=== PATIENT | female | born 1980 | race Caucasian/White ===

== ENCOUNTER 2019-03-15 08:08 | Outpatient (CLI) | payer OTHER ==
--- NOTE | 2019-03-15 10:10 | MRI ---
MRI CERVICAL SPINE WITHOUT CONTRAST: Date: 03/15/19 HISTORY: 39-year-old female with neck pain, cervical radiculopathy, right arm, and shoulder tingling. COMPARISON: 04/11/16. FINDINGS: Vertebral body heights and marrow signal are maintained. Intervertebral disc heights and signal are a lso maintained. No focal disc herniation, central canal stenosis, or neural foraminal stenosis seen. The cervical spinal cord demonstrates normal course, caliber, and signal. No evidence of cord flower rose, cord edema, syringomyelia, or myelomalacia is seen. No tonsillar herniation is identified. IMPRESSION: Normal exam. POS: [facility]
== END 2019-03-15 08:09 | disposition home or self-care (01) ==
LOC: BICMRI 08:08
DX: M54.12 Radiculopathy, cervical region (principal)
CPT/HCPCS: 72141

== ENCOUNTER 2019-10-06 08:38 | Outpatient (CLI) | payer OTHER ==
--- NOTE | 2019-10-06 13:32 | MRI ---
BRACHIAL PLEXUS MRI: Date: 10/06/19 HISTORY: Right-sided arm and shoulder pain. Right arm fatigue. Numbness in the fingers of the right hand. Prev ious thoracic outlet surgery. Previous right bicep and labrum repair. COMPARISON: None. TECHNIQUE: A brachial plexus MRI is performed with and without intravenous Gadolinium administration. Multiseque ntial, multiplanar imaging is performed. FINDINGS: Visualized brain parenchyma and soft tissue neck structures are grossly unremarkable. Visualized spinal cord has appropriate signal intensity. No abnormal enhancement. Visualized cervical and thoracic vertebra have appropriate marrow signal intensity. Postcontrast images do not demonstrate any pathologic enhancement of the soft tissues of the neck, ve rtebral bodies, or spinal cord. No obvious masses in the aerodigestive tract. There is appropriate signal intensity of the right brachial plexus. There is no evidence of a mass or expansion. There is no evidence of abnormal enhancement. There is no evidence of an axillary mass or right periclavicular mass. There is evidence of previous surgical repair of the right biceps tendon. Overall, there is appropria te marrow signal intensity of the visualized right humerus. IMPRESSION: Unremarkable right brachial plexus MRI. POS: [facility]
[2019-10-06] MEDS ORDERED: Magnevist 469MG/ML 20 ML VIAL ONE (15:33)
== END 2019-10-06 08:39 | disposition home or self-care (01) ==
LOC: BICMRI 08:38
DX: G54.0 Brachial plexus disorders (principal); M25.511 Pain in right shoulder
CPT/HCPCS: 71552; A9579

== ENCOUNTER 2020-10-03 13:03 | Outpatient (CLI) | payer OTHER ==
--- NOTE | 2020-10-03 14:53 | MMO ---
Bilateral MAMMO Bilat Screen [facility]. CLINICAL HISTORY: Patient is 40 years old and is seen for screening. The patient has the following family history of breast cancer: grandmother, at age 85. The patient has no personal history of cancer. VIEWS: The views performed were: bilateral craniocaudal with tomosynthesis and bilateral mediolateral oblique with tomosynthesis. FILMS COMPARED: The present examination has been compared to prior imaging studies performed at [facility] on 08/01/2016 and 08/05/2016. This study has been interpreted with the assistance of computer-aided detection. MAMMOGRAM FINDINGS: The breasts are heterogeneously dense, which could obscure a lesion on mammography. There are no suspicious masses, suspicious calcifications, or new areas of architectural distortion. IMPRESSION: THERE IS NO MAMMOGRAPHIC EVIDENCE OF MALIGNANCY. A ROUTINE FOLLOW-UP MAMMOGRAM IN 1 YEAR IS RECOMMENDED. THE RESULTS OF THIS EXAM WERE SENT TO THE PATIENT. ACR BI-RADS Category 1 - Negative MAMMOGRAPHY NOTE: 1. A negative mammogram report should not delay a biopsy if a dominant of clinically suspicious mass is present. 2. Approximately 10% to 15% of breast cancers are not detected by mammography. 3. Adenosis and dense breasts may obscure an underlying neoplasm. Reported by: MADHAVI GOTTI MD Electonically Signed: [id number]
== END 2020-10-03 13:04 | disposition home or self-care (01) ==
LOC: BICMAMMO 13:03
PROVIDERS: ATTEND Obstetrics & Gynecology
DX: Z12.31 Encounter for screening mammogram for malignant neoplasm of breast (principal); Z80.3 Family history of malignant neoplasm of breast
CPT/HCPCS: 77063; 77067

== ENCOUNTER 2023-10-26 10:39 | Outpatient (CLI) | payer OTHER | END 2023-10-26 10:40 | disposition home or self-care (01) | LOC: BICMAMMO 10:39 | PROVIDERS: ATTEND Family Medicine | DX: M81.0 Age-related osteoporosis without current pathological fracture (principal); M85.89 Other specified disorders of bone density and structure, multiple sites | CPT/HCPCS: 77080 ==